=== PATIENT | female | born 1970 | race Two or more races ===

== ENCOUNTER 2016-03-09 05:07 | Day surgery (SDC) | payer OTHER ==
[2016-03-07 17:19] VITALS: BMI 24.1
[2016-03-09] MEDS ORDERED: LIDOCAINE HCL/PF 2% SDV 5ML VIAL ONE (15:20)
[2016-03-09] MEDS ORDERED: PROPOFOL 20 ML ONE (15:20)
[2016-03-09] MEDS ORDERED: KETOROLAC TROMETHAMINE 30 MG/1 ML VIAL ONE (15:20)
--- NOTE | 2016-03-09 15:37 | HP ---
Past Medical History - Primary Care Physician PCP:: Martin Benedict - Admission Chief Complaint: menometrorrhagia History of Present Illness: 45 yo with hx of irregular menses admitted for hysteroscopy D&C, rba discussed History Source: Patient Limitations to Obtaining History: No Limitations - Past Medical History ...: 0 Heme/Onc: Yes: Anemia - Past Surgical History Hx Myomectomy: No Hx Transabdominal Cerclage: No - Smoking History Smoking history: Never smoked Have you smoked in the past 12 months: No - Alcohol/Substance Use Hx Alcohol Use: No - Social History History of Recent Travel: No Home Medications - Allergies Allergies/Adverse Reactions: Allergies Allergy/AdvReac Type Severity Reaction Status Date / Time Penicillins Allergy "RASH" Verified 03/07/16 17:20 - Home Medications Home Medications: Ambulatory Orders Ibuprofen [Motrin -] 600 mg PO QID #28 tablet 03/09/16 Review of Systems - Review of Systems Constitutional: reports: Malaise, Weakness Eyes: reports: No Symptoms, Floaters HENT: reports: No Symptoms Neck: reports: No Symptoms Cardiovascular: reports: No Symptoms Respiratory: reports: No Symptoms Gastrointestinal: reports: No Symptoms Genitourinary: reports: Vaginal Bleeding Breasts: reports: No Symptoms Reported Musculoskeletal: reports: No Symptoms Integumentary: reports: No Symptoms Neurological: reports: No Symptoms Endocrine: reports: No Symptoms Psychiatric: reports: No Symptoms 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 Vital Signs: Vital Signs Temperature 97.8 F 03/09/16 14:09 Pulse Rate 64 03/09/16 14:09 Respiratory Rate 18 03/09/16 14:09 Blood Pressure 118/77 03/09/16 14:09 O2 Sat by Pulse Oximetry (%) 100 03/09/16 14:09 Constitutional: Yes: Well Nourished, No Distress, Calm Eyes: Yes: WNL, Conjunctiva Clear, EOM Intact HENT: Yes: WNL, Atraumatic, Normocephalic Neck: Yes: WNL, Supple, Trachea Midline Cardiovascular: Yes: WNL, Regular Rate and Rhythm Respiratory: Yes: WNL, Regular, CTA Bilaterally Gastrointestinal: Yes: WNL ...Rectal Exam: Yes: WNL Renal/: Yes: WNL Pelvis: Yes: WNL External Genitalia: Yes: Enterocele Vaginal Exam: Yes: Normal Cervix: Yes: Normal Uterus: Yes: Normal Adnexa: Not Palpable: Left, Right Breast(s): Yes: WNL Musculoskeletal: Yes: WNL Extremities: Yes: WNL Edema: No Integumentary: Yes: WNL Neurological: Yes: WNL, Alert, Oriented ...Motor Strength: WNL Psychiatric: Yes: WNL, Alert, Oriented Problem List - Problem (1) Menometrorrhagia Code(s): N92.1 - EXCESSIVE AND FREQUENT MENSTRUATION WITH IRREGULAR CYCLE Assessment/Plan hysteroscopy D&C, rba explained
[2016-03-09] MEDS ORDERED: DEXAMETHASONE SOD PHOSPHATE 4 MG/1 ML VIAL ONE (15:45)
[2016-03-09] MEDS ORDERED: IBUPROFEN 800 MG/8 ML IJ IVPB PRN (15:56)
[2016-03-09] MEDS ORDERED: oxyCODONE HCL 5 MG TABLET PO PRN (15:56)
[2016-03-09] MEDS ORDERED: IBUPROFEN 600 MG TABLET (FP) PO PRN (15:56)
[2016-03-09] MEDS ORDERED: ONDANSETRON 4 MG/2 ML VIAL IVPB PRN (15:56)
[2016-03-09] MEDS ORDERED: ELECTROLYTE-148 SOLN 1,000 ML IV SCH (16:00)
[2016-03-09] MEDS ORDERED: LACTATED RINGERS SOLUTION 1,000 ML IV SCH (16:15)
[2016-03-09 16:38] VITALS: TEMP 98
[2016-03-09 17:51] VITALS: BP 120/74; PULSE 68
--- NOTE | 2016-03-10 00:50 | OP ---
DATE OF OPERATION: 03/09/2016 PREOPERATIVE DIAGNOSIS: Menometrorrhagia, fibroid uterus. POSTOPERATIVE DIAGNOSIS: Menometrorrhagia, fibroid uterus. PROCEDURE: Hysteroscopy dilation and curettage. SURGEON: Martin Benedict M.D. ANESTHESIA: General. ANESTHESIOLOGIST: Flori Dahl M.D. ESTIMATED BLOOD LOSS: 50 mL. DESCRIPTION OF PROCEDURE: Patient was taken to operating room and adequate general anesthesia. Examination under anesthesia revealed the external genitalia to be normal. Vagina was normal. Cervix was clean, no lesion. Uterus normal in size . Adnexa no masses were palpable. With weighted speculum in the vagina, anterior lip of the cervix was grasped with [place] tenaculum and endocervical curetting was done. Then uterine cavity was sounded to 7 cm. Then cervix was slightly dilated. Hysteroscope was introduced, visualization of endocervical canal appeared to be normal. There was a 2-3 cm submucous intramural myoma seen in the lower posterior uterine wall close to the endocervical canal. no other abnormality was seen. Endometrium appeared to be hypertrophic and irregular. Then cervix was gradually elevated with Hegar dilator and then a uterine cavity was curetted. Small amount of tissue was obtained. Patient tolerated procedure well, left the OR in good condition. MARTIN BENEDICT M.D. /[id number]
--- NOTE | 2016-03-13 12:54 | PATH ---
Surgical Pathology Report Patient Name: CORBY SHANE [facility]. Rec. #: [id number] /Age/Gender: 1970 (Age: 45) / F Account: [id number] Location: [facility] Taken: 03/09/2016 Received: 03/10/2016 Reported: 03/13/2016 Physicians: Martin Benedict M.D. Specimen(s) Received A: ENDOCERVICAL CURETTINGS B: ENDOMETRIAL CURETTINGS Clinical History Frequent menstruation with irregular cycle Final Diagnosis A. ENDOCERVIX, CURETTAGE: FRAGMENTS OF BENIGN ENDOCERVICAL TISSUE WITH MARKED CHRONIC CERVICITIS. FRAGMENT OF BENIGN SQUAMOUS EPITHELIUM. B. ENDOMETRIUM, CURETTAGE: POLYPOID AND NON-POLYPOID FRAGMENTS OF DISORDERED AND WEAKLY PROLIFERATIVE ENDOMETRIUM WITH FOCAL EVIDENCE OF CHRONIC ENDOMETRITIS. Electronically Signed Brice Cantor M.D. Gross Description A. Received in formalin, labeled "endocervical curettings" is a 0.8 x 0.6 x 0.2 cm aggregate of melendez-brown soft tissue fragments. The formalin is filtered and the specimen is entirely submitted in one cassette. B. Received in formalin, labeled "endometrial curettings" is a 2.4 x 2.0 x 0.3 cm aggregate of melendez-brown soft tissue fragments. The formalin is filtered and the specimen is entirely submitted in one cassette. 03/10/2016 [place]03/10/2016
== END 2016-03-09 17:50 | disposition home or self-care (01) ==
LOC: JASU-SURG 05:07
PROVIDERS: ATTEND Obstetrics & Gynecology
PROC: 0UDB8ZX Extraction of Endometrium, Via Natural or Artificial Opening Endoscopic, Diagnostic (ICD-10-PCS; principal; 2016-03-09 15:00)
DX: N92.1 Excessive and frequent menstruation with irregular cycle (principal); D25.9 Leiomyoma of uterus, unspecified
CPT/HCPCS: 84703; 88305-TC; 94760